=== PATIENT | female | born 1965 | race Caucasian/White ===

== ENCOUNTER 2019-12-04 07:32 | Emergency (ER) | payer OTHER ==
[~2019-12-04] VITALS: Ht 160 cm; Wt 72.6 kg
[2019-12-04] MEDS ORDERED: MEDROLPACK PO (10:34)
[2019-12-04] MEDS ORDERED: ULTRAM50 MG PO (10:34)
[2019-12-04] MEDS ORDERED: ADVIL200 MG PO (14:52)
== END 2019-12-04 14:54 | disposition home or self-care (01) ==
LOC: ER 07:32
DX: M65.831 Other synovitis and tenosynovitis, right forearm (principal); M25.531 Pain in right wrist

== ENCOUNTER 2020-01-20 15:20 | Outpatient (CLI) | payer OTHER ==
[~2020-01-20 15:20] MED LIST: ADVIL200 MG PO; MEDROLPACK PO; ULTRAM50 MG PO
== END 2020-01-20 15:33 | disposition home or self-care (01) ==
LOC: RAD 15:20
DX: M25.571 Pain in right ankle and joints of right foot (principal)

== ENCOUNTER 2020-03-14 09:46 | Outpatient (CLI) | payer OTHER | END 2020-03-14 10:02 | disposition home or self-care (01) | LOC: NUCLEAR 09:46 | DX: M81.0 Age-related osteoporosis without current pathological fracture (principal) ==

== ENCOUNTER 2020-07-26 08:57 | Outpatient (CLI) | payer OTHER | END 2020-07-26 09:13 | disposition home or self-care (01) | LOC: MRI 08:57 | DX: M25.562 Pain in left knee (principal) | CPT/HCPCS: 73721 ==

== ENCOUNTER 2020-12-15 06:54 | Emergency (ER) | payer OTHER ==
[~2020-12-15] VITALS: Ht 160 cm; Wt 0.5 kg
== END 2020-12-15 12:30 | disposition home or self-care (01) ==
LOC: ER 06:54
DX: K57.92 Diverticulitis of intestine, part unspecified, without perforation or abscess without bleeding (principal); Z03.818 Encounter for observation for suspected exposure to other biological agents ruled out